=== PATIENT | female | born 1995 | race Caucasian/White ===

== ENCOUNTER 2019-11-29 08:14 | Outpatient (CLI) | payer BC ==
--- NOTE | 2019-11-29 09:20 | ULT ---
US Abdominal History: Right flank pain Comparison: Right upper quadrant ultrasound 2008 Findings: Real-time grayscale and color evaluation of the abdomen was performed. Visualized portion of the aorta, IVC, and pancreas are unremarkable. Prior cholecystectomy. No hepatic mass. Mildly coarsened hepatic echotexture. Portal vein is patent with antegrade flow. Right kidney measures 10.3 x 5.1 x 3.7 cm and the left kid vish measures 9.8 x 4.2 x 4.2 cm. No renal mass, hydronephrosis, or abnormal calcifications. Spleen is normal measuring 10.9 cm in length. The common bile duct is normal. Impression: Mildly coarse hepatic echotexture can be seen with hepatic dysfunction/cirrhosis.
--- NOTE | 2019-11-29 09:27 | ULT ---
Ultrasound of the pelvis: 11/29/2019 COMPARISON:None available HISTORY:Right-sided flank pain for 3 months, history of cholecystectomy and appendectomy TECHNIQUE: Multiplanar grayscale sonographic imaging of the pelvis obtained with transabdominal imagi ng. Ovaries are assessed with Doppler interrogation including color flow and spectral analysis. FINDINGS: The uterus measures8.0 x 3.4 x 5.1 cm and demonstrates an endometrial thickness of9 mm, wit hin normal limits for a premenopausal female. The right ovary measures2.2 x 1.5 x 1.9 cm. The left ovary measures2.1 x 1.2 x 2.1 cm. No ovarian/adnexal mass. No free fluid. No uterine mass. Ovaries demonstrate normal blood flow. IMPRESSION:Unremarkable pelvic ultrasound..
== END 2019-11-29 08:15 | disposition home or self-care (01) ==
LOC: SCSULT 08:14
PROVIDERS: ATTEND Specialist
DX: R10.9 Unspecified abdominal pain (principal)
CPT/HCPCS: 76856; 93975; 93976

== ENCOUNTER 2019-12-19 13:06 | Outpatient (CLI) | payer BC ==
--- NOTE | 2019-12-19 13:45 | CT ---
CT ABDOMEN AND PELVIS WITHOUT IV CONTRAST: Date: 12/19/2019 INDICATION: Right flank pain. Epigastric pain. FINDINGS: Lung bases clear. Liver, spleen, and pancreas appear unremarkable for an unenhanced study. Post cholecystectomy changes are noted with clips in the gallbladder fossa. Stomach and duodenum unremarkable. Adrenal glands normal. Kidneys unremarkable. No evidence of urinary tract calculus. No evidence of hydronephrosis. The urina ry bladder is nondistended and not well evaluated. Small bowel loops are normal caliber. Appendix is not identified and may be surgically absent. Promin ent stool throughout the colon. No adenopathy, mass, or fluid collection. The uterus and adnexa appear unremarkable. Osseous structures unremarkable. IMPRESSION: No acute process. No evidence of urinary tract calculus or obstruction. POS: [facility]
== END 2019-12-19 13:07 | disposition home or self-care (01) ==
LOC: BICCT 13:06
PROVIDERS: ATTEND Internal Medicine Gastroenterology
DX: K59.09 Other constipation (principal); R10.13 Epigastric pain; K76.0 Fatty (change of) liver, not elsewhere classified; E10.9 Type 1 diabetes mellitus without complications
CPT/HCPCS: 74176